=== PATIENT | female | born 1960 | race Hispanic/Latino ===

== ENCOUNTER 2021-09-11 13:18 | Observation (INO) | payer MEDICARE ==
[2021-09-11 14:04] LABS: #Monocytes 0.6 10x3/uL (0.0-1.1); #Neutrophils 6.1 10x3/uL (1.5-8.4); %Basophils 0.1 % (0.0-2.0); %Eosinophils 0.3 % (0.0-6.0); %Lymphocytes 27.8 % (18.0-47.0); %Monocytes 6.1 % (0.0-10.0); %Neutrophils 65.4 % (40.0-75.0); Hemoglobin 14.7 g/dL (12.0-15.5); Mean Corpuscular HGB CONC 34.1 g/dL (32.0-36.0); Mean Corpuscular Hemoglobin 30.5 pg (27.0-33.0); Mean Corpuscular Volume 89.4 fl (81.6-98.3); Mean Platelet Volume 11.1 fl (7.4-10.4); Platelet Count 217 10x3/uL (150-450); RBC Distribution Width 12.1 % (11.5-14.5); Red Blood Cell (RBC) Count 4.82 10x6/uL (3.90-5.03); White Blood Cell (WBC) Count 9.3 10x3/uL (3.5-10.5)
[2021-09-11 14:21] LABS: ALT (SGPT) 9 U/L (8-55); AST (SGOT) 24 U/L (5-34); Albumin 3.6 g/dL (3.4-4.8); Alkaline Phosphatase 173 U/L (40-110); Anion Gap 12 mmol/L (10-20); BUN (Urea Nitrogen) 15 mg/dL (9.8-20.1); Bilirubin, Total 0.8 mg/dL (0.2-1.2); Calc. Creatinine Clearance 0 mL/min (70-130); Calcium 9.1 mg/dL (7.8-10.44); Carbon Dioxide 26 mmol/L (23-31); Chloride 101 mmol/L (98-107); Globulin 3.4 g/dL (2.4-3.5); Glucose 337 mg/dL (80-115); Magnesium 1.7 mg/dL (1.6-2.6); Phosphorus 2.1 mg/dL (2.3-4.7); Potassium 4.2 mmol/L (3.5-5.1); Sodium 135 mmol/L (136-145)
[2021-09-11 16:24] LABS: Actual Bicarbonate (HCO3v) 22 mEq/L (22-28); Base Excess -2.5 mEq/L (-2.0 to +3.0); Calcium, Ionized (venous) 1.11 mmol/L (1.16-1.32); Chloride (VBG) 102 mmol/L (98-106); Hemoglobin (Hb) 15.8 g/dL (11.7-16.0); Potassium (VBG) 4.02 mmol/L (3.70-5.30); Puncture Site Other Site; Sodium 135.1 mmol/L (133-146); pH (venous) 7.39 (7.32-7.43)
[2021-09-11 21:27] VITALS: BMI 16.9
[2021-09-11] MEDS ORDERED: hydrALAZINE 20 MG/ML VIAL SLOW IVP PRN (23:07)
[2021-09-12] MEDS ORDERED: Dextrose 50% Abboject 50 ML SYRINGE IVP PRN (07:00)
[2021-09-12] MEDS ORDERED: HumaLOG 300 UNITS/3 ML VIAL SC PRN (07:00)
[2021-09-12] MEDS ORDERED: Dextrose 5% in Water 1,000 ML IV PRN (07:00)
[2021-09-12] MEDS ORDERED: Acetaminophen 650 MG Suppository PR PRN (09:29)
[2021-09-12] MEDS ORDERED: Acetaminophen 325 MG TAB PO PRN (09:29)
[2021-09-12] MEDS ORDERED: HumuLIN 70/30 (300 UNITS/3 ML VIAL) SC SCH ×2 (09:30→21:00)
[2021-09-12] MEDS ORDERED: Lantus 1000 UNITS/10 ML VIAL SC SCH ×2 (10:15→21:00)
[2021-09-12 12:00] VITALS: BP 180/75; TEMP 98.4
== END 2021-09-12 13:50 | disposition home or self-care (01) ==
LOC: CSHERS 13:18 → CSHTELE 21:06
PROVIDERS: ADMIT Student in an Organized Health Care Education/Training Program; ATTEND Student in an Organized Health Care Education/Training Program
DX: E11.65 Type 2 diabetes mellitus with hyperglycemia (principal); I10 Essential (primary) hypertension; E78.5 Hyperlipidemia, unspecified; J44.9 Chronic obstructive pulmonary disease, unspecified; Z79.899 Other long term (current) drug therapy
CPT/HCPCS: 80053; 82010; 82805; 82962 ×2; 83735; 84100; 85025; 99285; G0378 ×3; 36415; 36416; J1815